=== PATIENT | female | born 1970 | race Two or more races ===

== ENCOUNTER 2019-12-24 13:55 | Emergency (ER) | payer OTHER ==
[~2019-12-24] VITALS: Ht 172.7 cm; Wt 69.5 kg
[2019-12-24 14:02] VITALS: BP 120/77
[2019-12-24 14:28] LABS: MEAN CORPUSCULAR HEMOGLOBIN 29.8 pg (27.0-34.8); MEAN CORPUSCULAR VOLUME 87.5 fL (80-100); MEAN PLATELET VOLUME 8.8 fL (7.4-10.4); PLATELET COUNT 120 x10^3/uL (130-400); RED BLOOD COUNT 4.74 x10^6/uL (3.82-5.3); RED CELL DISTRIBUTION WIDTH 12.2 % (9.6-15.2)
[2019-12-24 14:41] LABS: ALBUMIN 3.2 g/dL (3.4-5.0); CALCIUM 8.6 mg/dL (8.5-10.1); CHLORIDE 108 mmol/L (98-107); CREATININE 0.71 mg/dL (0.55-1.02)
--- NOTE | 2019-12-24 14:45 | NUR ---
pt presents to ED stating she is more short of breath this am, was diagnosed with covid 5 days ago. pt took own albuterol inhaler at home prior to arrival. all monitors in place, spo2 >95% on room air, pt able to speak in full sentences without difficulty. 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 call light in reach. awaiting lab and cxr results. pt updated with POC, agreeable.
[2019-12-24] MEDS ORDERED: LEVO125T PO (14:48)
[2019-12-24] MEDS ORDERED: IBUP-1223 PO (14:48)
[2019-12-24] MEDS ORDERED: albuterol INH (14:48)
[2019-12-24 14:52] LABS: BASOPHILS # (AUTO) 0.01 x10^3/uL (0-0.1); BASOPHILS % (AUTO) 0 % (0-1); EOSINOPHILS # (AUTO) 0.03 x10^3/uL (0-0.4); EOSINOPHILS % (AUTO) 1 % (1-7); LYMPHOCYTES # (AUTO) 0.96 x10^3/uL (1-3.4); LYMPHOCYTES % (AUTO) 37 % (22-44); MD SCAN; MONOCYTES # (AUTO) 0.23 x10^3/uL (0.2-0.8); MONOCYTES % (AUTO) 9 % (2-9); NEUTROPHILS # (AUTO) 1.38 x10^3/uL (1.8-6.8); NEUTROPHILS % (AUTO) 53 % (42-75)
[2019-12-24 15:19] LABS: ANION GAP 10 mmol/L (5-15)
--- NOTE | 2019-12-24 15:25 | NUR ---
report given to JOSEY Diallo who is assuming care.
--- NOTE | 2019-12-24 16:47 | NUR ---
Pt tolerating walking around unit with SPO2 sat not below 95% while ambulating. Reported to Dr. Freeman. Pt to be dc'd
== END 2019-12-24 16:49 | disposition home or self-care (01) ==
LOC: ED 16:30
DX: J18.1 Lobar pneumonia, unspecified organism (principal); R94.31 Abnormal electrocardiogram [ECG] [EKG]
CPT/HCPCS: 36415; 71045; 80048; 82040; 84145; 85025; 93005; 99285